=== PATIENT | female | born 1955 | race Caucasian/White ===

== ENCOUNTER 2017-09-05 14:09 | Emergency (ER) | payer BC ==
[~2017-09-05] VITALS: Ht 165.1 cm; Wt 84.1 kg
[2017-09-05] MEDS ORDERED: [UNRECOGNIZED DRUG - OTHER] IV (14:23)
[2017-09-05] MEDS ORDERED: FISH OIL1 IU PO (14:24)
[2017-09-05] MEDS ORDERED: LISINOPRIL10 MG PO (14:24)
[2017-09-05] MEDS ORDERED: PREMPRO 0.3 MG-1 TAB PO (14:24)
[2017-09-05] MEDS ORDERED: FLUOXETINE HCL10 MG PO (14:24)
[2017-09-05] MEDS ORDERED: ZYRTEC ALLERGY10 MG PO (14:24)
[2017-09-05] MEDS ORDERED: FLONASE ALLERG9.9 ML NS (14:25)
[2017-09-05] MEDS ORDERED: NATURAL VITAM1000 MG PO (14:26)
[2017-09-05] MEDS ORDERED: NATURE'S BOUNTY1 TAB PO (14:26)
[2017-09-05 15:34] LABS: EOS # 0.4 (0.04-0.40); EOS % 7.2 % (1.0-5.0); HEMATOCRIT 36.4 % (37.0-47.0); HEMOGLOBIN 12.1 g/dL (12.5-16.0); LYMPH# 1.6 (1.50-4.00); MEAN CELL VOLUME 88 fl (78-100); MEAN CORPUSCULAR HEMOGLOBIN 29 pg (27-31); MEAN CORPUSCULAR HGB CONC 33 g/dL (33-37); MEAN PLATELET VOLUME 9.2 fl (7.4-10.4); MONO # 0.4 (0.20-0.80); PLATELET COUNT 338 K/mm3 (130-400); RED BLOOD COUNT 4.16 M/mm3 (4.10-5.30); RED CELL DISTRIBUTION WIDTH 12.3 % (11.5-14.5); WHITE BLOOD COUNT 5.4 K/mm3 (4.8-10.8)
[2017-09-05 16:26] VITALS: BP 136/78
== END 2017-09-05 16:30 | disposition home or self-care (01) ==
LOC: ED 14:09
PROVIDERS: Family Medicine
DX: R05 Cough (principal); R09.81 Nasal congestion

== ENCOUNTER → 2020-02-17 | Outpatient (CLI) | payer SELFPAY ==
[~2020-02-17] MED LIST: FISH OIL1 IU PO; FLONASE ALLERG9.9 ML NS; FLUOXETINE HCL10 MG PO; LISINOPRIL10 MG PO; NATURAL VITAM1000 MG PO; NATURE'S BOUNTY1 TAB PO; PREMPRO 0.3 MG-1 TAB PO; ZYRTEC ALLERGY10 MG PO; [UNRECOGNIZED DRUG - OTHER] IV
== END ==
LOC: LAB 09:17
DX: R05 Cough (principal); R53.83 Other fatigue; R06.02 Shortness of breath; Z20.828 Contact with and (suspected) exposure to other viral communicable diseases

== ENCOUNTER → 2020-12-13 | Outpatient (CLI) | payer MEDICARE, MEDICAID ==
[2020-12-13 18:49] LABS: BASO # 0.04 (0.02-0.10); EOS % 4.3 % (1.0-5.0); HEMATOCRIT 38.7 % (37.0-47.0); HEMOGLOBIN 13.2 g/dL (12.5-16.0); LYMPH# 3.37 (1.50-4.00); MEAN CELL VOLUME 86 fl (78-100); MEAN CORPUSCULAR HEMOGLOBIN 29 pg (27-31); MEAN CORPUSCULAR HGB CONC 34 g/dL (33-37); MONO # 0.54 (0.20-0.80); NEU # 5.03 (1.40-6.50); PLATELET COUNT 379 K/mm3 (130-400); RED BLOOD COUNT 4.51 M/mm3 (4.10-5.30); RED CELL DISTRIBUTION WIDTH 11.8 % (11.5-14.5); WHITE BLOOD COUNT 9.4 K/mm3 (4.8-10.8)
[2020-12-13 18:57] LABS: ALBUMIN 4.2 g/dL (3.4-4.8)
[2020-12-13 18:59] LABS: CALCIUM 9.7 mg/dL (8.3-10.5)
[2020-12-13 19:00] LABS: TOTAL PROTEIN 7.2 g/dL (6.2-8.1)
[2020-12-13 19:02] LABS: TOTAL BILIRUBIN 0.5 mg/dL (0.2-1.2)
== END ==
LOC: LAB 18:27
PROVIDERS: Nurse Practitioner
DX: J02.9 Acute pharyngitis, unspecified (principal)

== ENCOUNTER 2021-10-08 15:33 | Emergency (ER) | payer MEDICARE, MEDICAID ==
[~2021-10-08] VITALS: Ht 162.6 cm; Wt 80.0 kg
[2021-10-08] MEDS ORDERED: ZITHROMAX 250M250 MG PO (16:16)
[2021-10-08] MEDS ORDERED: LEXAPRO 10MG10 MG PO (16:16)
[2021-10-08 17:13] LABS: BASO # 0.01 K/mm3 (0.02-0.10); EOS # 0.14 K/mm3 (0.04-0.40); EOS % 1.2 % (1.0-5.0); HEMOGLOBIN 13.9 g/dL (12.5-16.0); LYMPH# 1.52 K/mm3 (1.50-4.00); MEAN CELL VOLUME 85 fl (78-100); MEAN CORPUSCULAR HEMOGLOBIN 29 pg (27-31); MEAN CORPUSCULAR HGB CONC 34 g/dL (33-37); MEAN PLATELET VOLUME 9.3 fl (7.4-10.4); NEU # 9.91 K/mm3 (1.40-6.50); PLATELET COUNT 333 K/mm3 (130-400); RED CELL DISTRIBUTION WIDTH 11.7 % (11.5-14.5)
[2021-10-08 17:31] LABS: ALBUMIN 4.4 g/dL (3.4-4.8)
[2021-10-08 17:32] LABS: POTASSIUM 4.2 mmol/L (3.5-5.1)
[2021-10-08 17:33] LABS: CALCIUM 9.8 mg/dL (8.3-10.5)
[2021-10-08 17:34] LABS: TOTAL PROTEIN 7.5 g/dL (6.2-8.1)
[2021-10-08 17:36] LABS: TOTAL BILIRUBIN 0.3 mg/dL (0.2-1.2)
[2021-10-08 18:30] LABS: ERYTHROCYTE SEDIMENTATION RATE 18 mm/hr (0-30)
[2021-10-08 20:14] LABS: URINE APPEARANCE CLEAR; URINE BILIRUBIN NEGATIVE (NEGATIVE); URINE BLOOD 250 ery/uL (NEGATIVE); URINE COLOR YELLOW; URINE GLUCOSE NEGATIVE (NEGATIVE); URINE KETONE NEGATIVE (NEGATIVE); URINE LEUKOCYTE ESTERASE NEGATIVE (NEGATIVE); URINE NITRATE NEGATIVE (NEGATIVE); URINE PROTEIN(semi-quant) NEGATIVE (NEGATIVE); URINE UROBILINOGEN 1 mg/dL (NORMAL); URINE WBC 0-1 /hpf (0-3)
[2021-10-08] MEDS ORDERED: ZOFRAN ODT4 MG PO (20:29)
[2021-10-08] MEDS ORDERED: PREDNISONE10 MG PO (20:29)
[2021-10-08 20:45] VITALS: BP 138/58
== END 2021-10-08 20:45 | disposition home or self-care (01) ==
LOC: ED 15:33
PROVIDERS: Physician Assistant
DX: T78.40XA Allergy, unspecified, initial encounter (principal); R51.9 Headache, unspecified
CPT/HCPCS: J1200; J1885; J2405; J2930; J7030

== ENCOUNTER → 2021-12-17 | Outpatient (CLI) | payer MEDICARE, MEDICAID ==
[~2021-12-17] MED LIST changes: +LEXAPRO 10MG10 MG PO; +PREDNISONE10 MG PO; +ZITHROMAX 250M250 MG PO; +ZOFRAN ODT4 MG PO
== END ==
LOC: RAD 08:51
DX: M50.30 Other cervical disc degeneration, unspecified cervical region (principal); M51.36 Other intervertebral disc degeneration, lumbar region; M47.814 Spondylosis without myelopathy or radiculopathy, thoracic region

== ENCOUNTER → 2021-12-31 | Outpatient (CLI) | payer MEDICARE, MEDICAID | LOC: RAD 09:20 | DX: M25.571 Pain in right ankle and joints of right foot (principal) ==

== ENCOUNTER → 2022-01-05 | Outpatient (CLI) | payer MEDICARE, MEDICAID ==
[~2022-01-05] VITALS: Ht 162.6 cm; Wt 86.0 kg
[2022-01-05 11:13] LABS: BASO # 0.02 K/mm3 (0.02-0.10); EOS # 0.28 K/mm3 (0.04-0.40); EOS % 4.1 % (1.0-5.0); HEMATOCRIT 37.9 % (37.0-47.0); HEMOGLOBIN 12.7 g/dL (12.5-16.0); LYMPH# 2.62 K/mm3 (1.50-4.00); MEAN CELL VOLUME 89 fl (78-100); MEAN CORPUSCULAR HEMOGLOBIN 30 pg (27-31); MEAN CORPUSCULAR HGB CONC 34 g/dL (33-37); MEAN PLATELET VOLUME 9.3 fl (7.4-10.4); MONO # 0.51 K/mm3 (0.20-0.80); NEU # 3.32 K/mm3 (1.40-6.50); PLATELET COUNT 299 K/mm3 (130-400); RED BLOOD COUNT 4.28 M/mm3 (4.10-5.30); RED CELL DISTRIBUTION WIDTH 11.9 % (11.5-14.5); WHITE BLOOD COUNT 6.8 K/mm3 (4.8-10.8)
[2022-01-05 11:21] LABS: ALBUMIN 4.2 g/dL (3.4-4.8); POTASSIUM 4.3 mmol/L (3.5-5.1)
[2022-01-05 11:22] LABS: CALCIUM 9.8 mg/dL (8.3-10.5)
[2022-01-05 11:26] LABS: TOTAL BILIRUBIN 0.5 mg/dL (0.2-1.2)
[2022-01-05 13:40] VITALS: BP 116/51
== END ==
LOC: LAB 10:56 → AMSURD 10:56
PROVIDERS: Nurse Practitioner
DX: R31.29 Other microscopic hematuria (principal); R30.9 Painful micturition, unspecified
CPT/HCPCS: J7030; Q9967

== ENCOUNTER 2022-01-14 12:47 | Outpatient (RCR) | payer MEDICARE, MEDICAID | END 2022-01-15 | disposition home or self-care (01) | LOC: PT | DX: M54.50 Low back pain, unspecified (principal) ==

== ENCOUNTER 2022-01-21 14:59 | Outpatient (RCR) | payer MEDICARE, MEDICAID | END 2022-02-15 | disposition home or self-care (01) | LOC: PT | DX: M54.50 Low back pain, unspecified (principal) ==

== ENCOUNTER → 2022-02-11 | Outpatient (CLI) | payer MEDICARE, MEDICAID | LOC: RAD 12:14 → LAB 12:14 | DX: U07.1 COVID-19 (principal); J12.82 Pneumonia due to coronavirus disease 2019; J98.4 Other disorders of lung ==

== ENCOUNTER → 2022-03-03 | Outpatient (CLI) | payer MEDICARE, MEDICAID ==
[2022-03-03 14:55] LABS: BASO # 0.01 K/mm3 (0.02-0.10); EOS # 0.37 K/mm3 (0.04-0.40); EOS % 5.5 % (1.0-5.0); HEMATOCRIT 37.6 % (37.0-47.0); HEMOGLOBIN 12.6 g/dL (12.5-16.0); LYMPH# 2.61 K/mm3 (1.50-4.00); MEAN CELL VOLUME 87 fl (78-100); MEAN CORPUSCULAR HEMOGLOBIN 29 pg (27-31); MEAN CORPUSCULAR HGB CONC 34 g/dL (33-37); MEAN PLATELET VOLUME 9.1 fl (7.4-10.4); MONO # 0.41 K/mm3 (0.20-0.80); NEU # 3.27 K/mm3 (1.40-6.50); PLATELET COUNT 307 K/mm3 (130-400); WHITE BLOOD COUNT 6.7 K/mm3 (4.8-10.8)
[2022-03-03 15:11] LABS: POTASSIUM 4.2 mmol/L (3.5-5.1)
[2022-03-03 15:12] LABS: ALBUMIN 4.2 g/dL (3.4-4.8)
[2022-03-03 15:13] LABS: CALCIUM 9.5 mg/dL (8.3-10.5)
[2022-03-03 15:14] LABS: TOTAL PROTEIN 7.1 g/dL (6.2-8.1)
[2022-03-03 15:16] LABS: TOTAL BILIRUBIN 0.4 mg/dL (0.2-1.2)
== END ==
LOC: LAB 14:36
PROVIDERS: Internal Medicine
DX: I10 Essential (primary) hypertension (principal); E78.00 Pure hypercholesterolemia, unspecified; E05.90 Thyrotoxicosis, unspecified without thyrotoxic crisis or storm